=== PATIENT | female | born 1985 | race Native Hawaiian/Other Pacific Islander ===

== ENCOUNTER 2020-03-29 23:07 | Inpatient (IN) | payer OTHER, SELFPAY ==
[2020-03-30] MEDS ORDERED: TERBUTALINE 1 MG/1 ML INJ SUB-Q PRN (01:20)
[2020-03-30] MEDS ORDERED: LIDOCAINE (2%) 20 MG/1 ML VIAL 20 ML MDV INFILTRATI ONE (01:20)
[2020-03-30] MEDS ORDERED: BUTORPHANOL 2 MG/1 ML INJ IV PRN (01:20)
[2020-03-30] MEDS ORDERED: MINERAL OIL 30 ML ORAL LIQD PO PRN (01:20)
[2020-03-30] MEDS ORDERED: ePHEDrine SULFATE 50 MG/1 ML INJ IV PRN (01:20)
[2020-03-30] MEDS ORDERED: ONDANSETRON 4 MG/2 ML INJ IV PRN (01:20)
[2020-03-30] MEDS ORDERED: fentaNYL 100 MCG/2 ML INJ IV PRN (01:20)
--- NOTE | 2020-03-30 01:24 | History and Physical Report ---
History of Present Illness Date of examination: 03/30/20 Date of admission: 03/30/2020 Chief complaint: Active labor History of present illness: 35yo, @ 40.1 wks, initiated care with Leanna Saldana at 22.6 wks gestation. Her has been complicated by obesity, late entry to [facility] and anemia. She presents to [facility] with reports of painful ctxs for a couple of hours. She reports + FM. Denies any VB or LOF. Labs: O+, antibody negative; rubella immune; RPR negative HBsAg negative; HIV negative; PAP smear negative; GC/Chlamydia negative; 1 hr gtt - 196; 3 hr gtt: 94, 132, 216, 97; GBS negative. Past History Past Medical History: no pertinent history Past Surgical History: no surgical history Family/Genetic History: none, Down's syndrome (family history) Social history: , lives with family, full code. denies: smoking, alcohol abuse, prescription drug abuse, IV drug use - Obstetrical History Expected Date of Delivery: 03/29/20 Actual Gestation: 40 Week(s) 1 Day(s) : 5 Para: 4 Hx # Term Pregnancies: 4 Number of Pregnancies: 0 Spontaneous Abortions: 0 Induced : 0 Number of Living Children: 4 #1 Gender: Male year: 2,012 Method of Delivery: Vaginal Complications: none #2 Gender: Male year: 2,016 Method of Delivery: Vaginal Complications: other (GDM) #3 Infant Gender: Female year: 2,018 Method of Delivery: Vaginal Complications: none #4 Infant Gender: Male year: 2,019 Method of Delivery: Vaginal Complications: none Medications and Allergies Allergies Allergy/AdvReac Type Severity Reaction Status Date / Time No Known Allergies Allergy Verified 08/28/15 22:29 Review of Systems Genitourinary: contractions (painful) - Vital Signs Vital signs: Vital Signs Pulse BP 85 135/87 03/29/20 23:27 03/29/20 23:27 Temp Pulse Resp BP Pulse Ox 98.7 F 85 16 135/87 03/29/20 23:30 03/29/20 23:30 03/29/20 23:30 03/29/20 23:30 - Physical Exam Breasts: Positive: normal Cardiovascular: Regular rate Abdomen: Positive: other (gravid) Uterus: Positive: enlarged (S=D) Extremities: Positive: edema - Obstetrical FHR: category 1 Uterine Contraction Monitor Mode: External Cervical Dilatation: 5 (vertex) Cervical Effacement Percentage: 60 station: -2 Uterine Contraction Frequency (min): 3-4 Uterine Tone Measurement Phase: Resting Uterine Contraction Intensity: Moderate Results All other labs normal. Assessment and Plan - Patient Problems (1) Active labor at term Current Visit: Yes Status: Acute Plan to address problem: Admit to L & D AROM Pain meds as desired per order Anticipate (2) Maternal obesity affecting , antepartum Current Visit: Yes Status: Acute
[2020-03-30] MEDS ORDERED: LACTATED RINGERS 1,000 ML IV SCH (01:30)
[2020-03-30] MEDS ORDERED: OXYTOCIN DRIP 30 UNITS/500 ML BAG IV SCH ×2 (02:00)
[2020-03-30 04:02] LABS: Hematocrit 37.4 % (30.3-42.9); Hemoglobin 13.1 gm/dl (10.1-14.3); Mean Corpuscular HGB Conc 35 % (30-34); Mean Corpuscular Volume 91 fl (79-97); Platelet Count 184 K/mm3 (140-440); Red Blood Count 4.12 M/mm3 (3.65-5.03); Red Cell Distribution Width 14.7 % (13.2-15.2)
[2020-03-30] MEDS ORDERED: WITCH HAZEL/ GLYCERIN PAD TP PRN (07:23)
[2020-03-30] MEDS ORDERED: LANOLIN/ZINC/DIMETHICONE (LANSINOH) 7 GM TP PRN (07:23)
[2020-03-30] MEDS ORDERED: PROMETHAZINE 25 MG TAB PO PRN (07:23)
[2020-03-30] MEDS ORDERED: MAGNESIUM HYDROXIDE (MOM) ORAL LIQD UDC PO PRN (07:23)
[2020-03-30] MEDS ORDERED: diphenhydrAMINE 25 MG CAP PO PRN (07:23)
--- NOTE | 2020-03-30 07:31 | Procedure Note ---
OB Delivery Note - Delivery Date of Delivery: 03/30/20 (0606) Surgeon: MOISES CASTRO (CNM) Estimated blood loss: 300cc - Vaginal Delivery presentation: vertex Delivery position: OA Delivery induction: none Delivery augmentation: rupture of membranes Delivery monitor: external FHT, external uterine Route of delivery: Delivery placenta: spontaneous (0710, ivan) Delivery cord: 3 umbilical vessels Episiotomy: none Delivery laceration: none Anesthesia: none Delivery comments: Received call from RN stating, "I went into the room and the baby was in the bed, but the placenta is still inside". Baby was heard crying in the background. Upon entrance to room, baby was in warmer with ROBERTA team nurse taking a bottle. Mother was resting quietly in bed. Placenta spontaneously delivered, ivan, disposed per hospital policy. Uterus firm @ U-2, hemostasis maintained. Perineum intact. Mother and baby safe, stable and left in care of RN. - Infant A at 1 minute: 8 at 5 minutes: 9 Infant Gender: Male (Weight: 4419gms (9lbs 12ozs) 21.5inches)
[2020-03-30] MEDS: IBUPROFEN 600 MG TAB PO SCH ×2 (07:35→19:07)
[2020-03-30] MEDS ORDERED: PRENATAL VIT27-FE FUMARATE-FOLIC ACID VIT TAB PO SCH (10:00)
[2020-03-30 19:22] LABS: Hemoglobin 10.9 gm/dl (10.1-14.3)
[2020-03-31] MEDS: IBUPROFEN 600 MG TAB PO SCH ×3 (00:21→18:51)
--- NOTE | 2020-03-31 10:32 | Progress Note ---
Assessment and Plan A: S/P Anemia P: Cont monitoring D/C home tomm if stable - Patient Problems (1) (normal spontaneous vaginal delivery) Current Visit: Yes Status: Acute Subjective - Subjective Date of service: 03/31/20 Principal diagnosis: Patient reports: appetite normal, voiding normally, pain well controlled, ambulating normally : doing well, bottle feeding Objective - Vital Signs Latest vital signs: Vital Signs Temp Pulse Resp BP BP Pulse Ox 03/31/20 07:19 97.8 F 88 16 114/73 98 03/31/20 01:28 98.2 F 81 18 110/70 94 03/30/20 16:17 98.2 F 90 18 118/83 95 03/30/20 12:36 98.2 F 85 17 119/76 96 Intake and Output 03/30/20 03/31/20 03/31/20 22:59 06:59 14:59 Intake Total 480 240 Output Total 300 Balance 180 240 Intake: Oral 480 240 Output: Urine 300 Void 300 Other: Total, Intake Amount 120 240 Total, Output Amount 300 # Voids Void 1 1 - Exam Breasts: Present: normal Abdomen: Present: normal appearance, soft, normal bowel sounds Vulva: both: normal Uterus: Present: normal, firm, fundal height below umbilicus Extremities: Present: normal
--- NOTE | 2020-03-31 10:51 | Discharge Summary ---
Providers - Providers Date of Admission: 03/30/20 01:21 Date of discharge: 04/01/20 Attending physician: SANDEEP GUERRA Primary care physician: SANDEEP GUERRA Hospitalization Reason for admission: active labor Delivery: Episiotomy: none Laceration: none Other procedures: none complications: none Discharge diagnosis: IUP at term delivered baby: male Hospital course: Pt was admitted in active labor and had a . No pp complications. See H&P, delivery summary, and pp notes. Condition at discharge: Stable Disposition: DC-01 TO HOME OR SELFCARE - Discharge Diagnoses (1) (normal spontaneous vaginal delivery) Status: Acute Plan - Discharge Medications Prescriptions: Ibuprofen [Motrin 600 MG tab] 600 mg PO Q6H #30 tablet - Provider Discharge Summary Additional instructions: [] Smoking cessation referral if applicable(refer to patient education folder for contact #) [] Refer to [facility]'s [facility] Booklet Call your doctor immediately for: * Fever > 100.5 * Heavy vaginal bleeding ( >1 pad per hour) * Severe persistent headache * Shortness of breath * Reddened, hot, painful area to leg or breast * Drainage or odor from incision. * Keep incision clean and dry at all times and follow doctor's instructions regarding bathing/showering - Follow up plan Follow up: SANDEEP GUERRA MD [Primary Care Provider] - 6 Weeks
[2020-03-31 21:26] VITALS: BP 109/79
== END 2020-03-31 21:30 | disposition home or self-care (01) | DRG 807 ==
LOC: TRG 23:07 → APU 23:08 → LD 03-30 01:21 → TRG 03-30 01:21 → OB 03-30 08:37
PROVIDERS: ADMIT Obstetrics & Gynecology; ATTEND Obstetrics & Gynecology
PROC: 10E0XZZ Delivery of Products of Conception, External Approach (ICD-10-PCS; principal; 2020-03-30)
DX: O99.214 Obesity complicating childbirth (principal); Z37.0 Single live birth; E66.9 Obesity, unspecified; O99.02 Anemia complicating childbirth; Z20.828 Contact with and (suspected) exposure to other viral communicable diseases; Z3A.40 40 weeks gestation of pregnancy
CPT/HCPCS: 36415; 85014; 85018; 85027; 86850; 86900; 86901; G0378; J2590; J3010; J7120; U0003